=== PATIENT | male | born 1970 | race Caucasian/White ===

== ENCOUNTER → 2018-04-21 14:05 | Emergency (ER) | payer OTHER ==
[~2018-04-21 14:05] MED LIST: Ciprofloxacin TAB* 500 MG PO ONE; Ketorolac INJ* 60 MG/2 ML VIAL IM ONE
--- NOTE | 2018-04-21 14:25 | ED ---
GI/ HPI - HPI Summary HPI Summary: Patient is a 47 y/o M presenting to ED with complaints of left testicular pain that suddenly onset this morning when he woke up, stating, "It (left testicle) started killing me." He is concerned about torsion but has no Hx of torsion. Patient denies urinary Sx, penile discharge, and fever. On triage, pain is rated 6/10. Nothing is noted to aggravate/alleviate Sx. Home medications and allergies are reviewed. - History of Current Complaint Chief Complaint: EDUrogenitalProblems Time Seen by Provider: 04/21/18 14:11 Stated Complaint: TESTICULAR PAIN Hx Obtained From: Patient Onset/Duration: Started Hours Ago, Still Present Timing: Constant, Lasting Hours Severity: Moderate - 6/10 Current Severity: Moderate - 6/10 Pain Intensity: 6 Additional Locations for Males: Testicles - left Associated Signs and Symptoms: Positive: Other: - POSITIVE - LEFT TESTICULAR PAIN. Negative: Fever, Hematuria, Dysuria Additional Signs & Symptoms: Negative: Penile Discharge Aggravating Factor(s): Nothing Alleviating Factor(s): Nothing - Additional Pertinent History Primary Care Physician: [id number] - Allergy/Home Medications Allergies/Adverse Reactions: Allergies Allergy/AdvReac Type Severity Reaction Status Date / Time Penicillins Allergy Severe Swelling Verified 04/21/18 14:10 PMH/Surg Hx/FS Hx/Imm Hx Endocrine/Hematology History: Reports: Hx Diabetes Cardiovascular History: Reports: Hx Hypercholesterolemia, Hx Hypertension Denies: Hx Pacemaker/ICD GI History: Denies: Hx Cirrhosis Musculoskeletal History: Reports: Hx Arthritis, Hx Back Problems Sensory History: Reports: Hx Hearing Aid - left ear Psychiatric History: Reports: Hx Panic Disorder - HX OF PTSD - Surgical History Surgery Procedure, Year, and Place: VASECTOMY 2009,APPENDIX 1999, LEFT KNEE ARTHROSCOPIC 2003, PRK LASER EYE SURGERY 2000 , BILATERAL PLANTAR FASCITIS 2009 Infectious Disease History: No Infectious Disease History: Denies: Traveled Outside the [place] in Last 30 Days - Family History Known Family History: Positive: Hypertension, Diabetes Negative: Cardiac Disease - Social History Alcohol Use: None Alcohol Amount: 1 beer abour q 2 weeks Substance Use Type: Reports: None Smoking Status (MU): Former Smoker Type: Cigarettes Length of Time of Smoking/Using Tobacco: 20 YEARS Have You Smoked in the Last Year: Yes Review of Systems Negative: Fever Positive: pain - LEFT TESTICULAR . Negative: dysuria, discharge - penile , hematuria All Other Systems Reviewed And Are Negative: Yes Physical Exam - Summary Physical Exam Summary: VITAL SIGNS: Reviewed. GENERAL: Patient is a well-developed and nourished male who is lying comfortable in the stretcher. Patient is not in any acute respiratory distress. HEAD AND FACE: Normocephalic and atraumatic. EYES: PERRLA, EOMI x 2, No injected conjunctiva. EARS: Hearing grossly intact. Ear canals and tympanic membranes are WNL. MOUTH: Oropharynx within normal limits. NECK: Supple, trachea is midline, no adenopathy, no JVD. CHEST: Symmetric, no tenderness at palpation LUNGS: Clear to auscultation bilaterally. No wheezing or crackles. CVS: RRR, S1 and S2 present, no murmurs or gallops appreciated. ABDOMEN: Soft, non-tender. No signs of distention. Positive bowel sounds. No rebound no guarding, and no masses palpated. No abdominal bruit or pulsations. EXTREMITIES: FROM in all major joints, no edema, no cyanosis or clubbing. NEURO: Alert and oriented x 3. No acute neurological deficits. Speech is normal. SKIN: Dry and warm : Circumcised penis, both testicles are descended. No masses are appreciated. Positive cremasteric reflex. Tenderness of left testicle. Triage Information Reviewed: Yes Vital Signs On Initial Exam: Initial Vitals Temp Pulse Resp BP Pulse Ox 98.1 F 90 18 152/96 98 04/21/18 14:08 04/21/18 14:08 04/21/18 14:08 04/21/18 14:08 04/21/18 14:08 Vital Signs Reviewed: Yes Diagnostics - Vital Signs Vital Signs Temp Pulse Resp BP Pulse Ox 04/21/18 14:08 98.1 F 90 18 152/96 98 - Laboratory Result Diagrams: 04/21/18 14:39 04/21/18 14:39 Lab Statement: Any lab studies that have been ordered have been reviewed, and results considered in the medical decision making process. - Ultrasound No standard instances Ultrasound Interpretation Completed By: Radiologist Summary of Ultrasound Findings: TESTICULAR US IMPRESSION: 1. NO EVIDENCE FOR TESTICULAR TORSION. 2. FINDINGS MOST CONSISTENT WITH LEFT EPIDIDYMITIS. 3. LEFT VARICOCELE. THIS REPORT WAS REVIEWED BY ED PHYSICIAN. Re-Evaluation - Re-Evaluation First Eval Re-Evaluation Time: 15:50 Comment: Patient was instructed to return to the emergency department he develops more pain or any other symptom. The patient understands and agrees. Patient also states that he is only sexually active with his . GIGU Course/Dx - Course Assessment/Plan: Patient is a 47 y/o M presenting to ED with complaints of left testicular pain that suddenly onset this morning when he woke up, stating, "It ( left testicle) started killing me." He is concerned about torsion but has no Hx of torsion. Patient denies urinary Sx, penile discharge, and fever. Test results without any significant abnormality except for WBCs of 13, slight anemia. Urinalysis is negative for UTI. Testicular ultrasound impression: No evidence for testicular torsion. Findings most consistent with left epididymitis. Left varicocele. In the ED course patient was started with ciprofloxacin and toradol for the pain. At this point the patient will be discharged home with follow-up with primary care physician. The patient will be given a prescription for ciprofloxacin and ibuprofen. Patient was instructed to return to the emergency department he develops more pain or any other symptom. The patient understands and agrees. - Diagnoses Differential Diagnoses - Male: Epididymitis, Testicular Torsion, Urinary Tract Infection Provider Diagnoses: Epididymitis - Physician Notifications Discussed Care Of Patient With: Tim Brooks Time Discussed With Above Provider: 15:13 Instructed by Provider To: Other - Dr. Brooks communicated the results of US to Dr. Piper at 1513. Discharge - Sign-Out/Discharge Documenting (check all that apply): Patient Departure - DISCHARGE Patient Received Moderate/Deep Sedation with Procedure: No - NO PROCEDURES DONE - Discharge Plan Condition: Stable Disposition: HOME Prescriptions: Ciprofloxacin TAB* [Cipro 500 MG TAB*] 500 mg PO BID #20 tab Ibuprofen TAB* [Motrin TAB* 600 MG] 600 mg PO Q8H PRN #30 tab PRN Reason: Pain Patient Education Materials: Epididymitis (ED) Referrals: Bladimir Avila MD [Primary Care Provider] - 3 Days Sharan Ponce MD [Medical Doctor] - 3 Days Additional Instructions: RETURN TO EMERGENCY DEPARTMENT WITH ANY NEW OR WORSENING SYMPTOMS. FOLLOW UP WITH PRIMARY CARE PHYSICIAN AND UROLOGIST WITHIN THREE DAYS. - Billing Disposition and Condition Condition: STABLE Disposition: Home - Attestation Statements Document Initiated by Scribe: Yes Documenting Scribe: LAYTON ORTEGA Provider For Whom Scribe is Documenting (Include Credential): FRANCO PIPER MD Scribe Attestation: I, LAYTON ORTEGA , scribed for FRANCO PIPER MD on 04/22/18 at 1314. Scribe Documentation Reviewed: Yes Provider Attestation: The documentation as recorded by the yaraeLAYTON accurately reflects the service I personally performed and the decisions made by me, FRANCO PIPER MD Status of Scribe Document: Viewed
[2018-04-21 14:53] LABS: ABS Basophils 0 10^3/ul (0-0.2); ABS Eosinophils 0.3 10^3/ul (0-0.6); ABS Lymphocytes 3.6 10^3/ul (1.0-4.8); ABS Neutrophils 8.1 10^3/ul (1.5-7.7); ABS Nucleated RBC 0 10^3/ul; Hematocrit 40 % (42-52); Hemoglobin 13.7 g/dl (14.0-18.0); Lymphocyte % 27.4 %; Mean Corpuscular HGB Conc 34 g/dl (31-36); Mean Corpuscular Hemoglobin 28 pg (27-31); Mean Corpuscular Volume 83 fL (80-94); Mean Platelet Volume 8.9 fL (7.4-10.4); Nucleated Red Blood Cells % 0; Platelet Count 280 10^3/ul (150-450); Red Blood Count 4.85 10^6/ul (4.00-5.40); Red Cell Distribution Width 14 % (10.5-15)
[2018-04-21 14:56] LABS: Urine Appearance Clear; Urine Bilirubin Negative (Negative); Urine Blood Negative (Negative); Urine Color Yellow; Urine Glucose Negative (Negative); Urine Ketones Negative (Negative); Urine Nitrite Negative (Negative); Urine Protein Negative (Negative); Urine Urobilinogen Negative (Negative)
[2018-04-21 15:30] LABS: Albumin 4.7 g/dL (3.2-5.2); Albumin/Globulin Ratio 1.7 (1-3); BUN/Creatinine Ratio 12.2 (8-20); C Reactive Protein 7.33 mg/L (<8.01); Calcium 9.3 mg/dL (8.6-10.3); EGFR African American 98.8 (>60); EGFR Non-African American 81.6 (>60); Globulin 2.7 g/dL (2-4); Potassium 4.1 mmol/L (3.5-5.0); Total Bilirubin 0.3 mg/dL (0.2-1.0); Total Protein 7.4 g/dL (6.4-8.9)
[2018-04-21 16:18] VITALS: BP 133/95
[2018-04-23 13:42] LABS: Neisseria gonorrhoeae (GC) RNA Negative (Negative)
== END | disposition home or self-care (01) ==
LOC: ED 14:05
DX: N45.1 Epididymitis (principal); I86.1 Scrotal varices; Z88.0 Allergy status to penicillin; Z87.891 Personal history of nicotine dependence
CPT/HCPCS: 36415; 76870; 80053; 81003; 83605; 85025; 86140; 87491; 87591; 96372; 99283; A9270-GY; J1885

== ENCOUNTER 2021-03-03 10:40 | Inpatient (IN) ==
[~2021-03-03 10:40] MED LIST changes: +Buffered Lidocaine 1% SYRIN 1 ml INTRADERM ONE; -Ciprofloxacin TAB* 500 MG PO ONE; -Ketorolac INJ* 60 MG/2 ML VIAL IM ONE; +Lactated Ringers 1000 ml BAG 1,000 ML IV SCH
[2021-03-03] MEDS ORDERED: Buffered Lidocaine 1% SYRIN 1 ml INTRADERM ONE (11:04)
[2021-03-03] MEDS ORDERED: Scopolamine 1 mg/72hr PATCH ONE (11:07)
[2021-03-03] MEDS ORDERED: Heparin 5000 UNITS/ML 1 mL VIAL ONE (11:07)
[2021-03-03] MEDS ORDERED: Clindamycin 900 MG/D5W BAG 900 MG/50 ML BAG IVPB ONE (11:07)
[2021-03-03] MEDS ORDERED: Ondansetron 4 mg VIAL 2 MG/ML 2 ml VIAL IV PRN ×2 (11:33→14:41)
[2021-03-03] MEDS ORDERED: Naloxone 0.4 mg VIAL 0.4 mg/ml 1 ml VIAL IV PRN (11:33)
[2021-03-03] MEDS ORDERED: HYDROmorphone 1 MG/1 ML SYRINGE IV PRN (11:33)
[2021-03-03] MEDS ORDERED: fentaNYL 100 mcg/2 ml 50 MCG/ML VIAL IV PRN (11:33)
[2021-03-03] MEDS ORDERED: Acetaminophen IV 1 GM/100ML 100 ML IV ONE ×2 (11:33→14:06)
[2021-03-03] MEDS ORDERED: DiMENhydriNATE IV 50 mg/ml 1 ml VIAL IV PUSH PRN (11:33)
[2021-03-03] MEDS ORDERED: Rocuronium 50 mg VIAL 10 mg/ml 5 ml VIAL (50 mg) ONE ×3 (11:34→13:33)
[2021-03-03] MEDS ORDERED: Ondansetron 4 mg VIAL 2 MG/ML 2 ml VIAL ONE ×2 (11:42→14:55)
[2021-03-03] MEDS ORDERED: Lidocaine 2% PF 5 ML VIAL ONE (11:42)
[2021-03-03] MEDS ORDERED: Propofol 10 MG/ML 20 ML BTL ONE (11:42)
[2021-03-03] MEDS ORDERED: Midazolam 2 mg/2 ml VIAL 1 mg/ml 2 ml VIAL (2 mg) ONE (11:43)
[2021-03-03] MEDS ORDERED: fentaNYL 250 mcg/5 ml 50 MCG/ML 5 ml VIAL (250 MCG) ONE (11:43)
[2021-03-03] MEDS ORDERED: Bupivacaine 0.25% SDV 30 ML ONE (11:45)
[2021-03-03] MEDS ORDERED: Phenylephrine 40 mcg/mL 10mL (400mcg) SYRINGE ONE (12:42)
[2021-03-03] MEDS ORDERED: Phenylephrine IV 10 MG/ML 1 ml VIAL ONE (13:07)
[2021-03-03] MEDS ORDERED: HYDROcodone/ACET. 7.5/325 LIQ 15 ML UDC PO PRN (14:41)
[2021-03-03] MEDS ORDERED: diPHENhydraMINE IV 50 MG/ML 1 ml VIAL (BENADRYL) SLOW PUSH PRN (14:41)
[2021-03-03] MEDS ORDERED: HYDROmorphone 1 MG/1 ML SYRINGE IV SLOW PU PRN (14:41)
[2021-03-03] MEDS ORDERED: HYDROmorphone 0.5 MG/0.5 ML SYRINGE IV SLOW PU PRN (14:41)
[2021-03-03] MEDS ORDERED: Dextrose 50% Syringe 50 ml 25 GM/50 ML SYRINGE IV PUSH PRN (14:41)
[2021-03-03] MEDS: Lactated Ringers 1000 ml BAG 1,000 ML IV SCH ×2 (16:23→23:06)
[2021-03-03] MEDS: Famotidine IV 10 MG/ML 2 ml VIAL (20 mg) IV SLOW PU SCH (22:43)
[2021-03-03] MEDS: Heparin 5000 UNITS/ML 1 mL VIAL SUBCUT SCH (22:43)
[2021-03-04] MEDS: Lactated Ringers 1000 ml BAG 1,000 ML IV SCH (06:10)
[2021-03-04] MEDS: Heparin 5000 UNITS/ML 1 mL VIAL SUBCUT SCH ×2 (06:27→13:57)
[2021-03-04] MEDS: Famotidine IV 10 MG/ML 2 ml VIAL (20 mg) IV SLOW PU SCH (07:32)
[2021-03-04] MEDS ORDERED: D5W 1/2 NS KCl 20 meq 1000 ml 1,000 ML IV SCH (15:00)
[2021-03-04 15:48] VITALS: BP 127/71
== END 2021-03-04 17:25 | disposition home or self-care (01) | DRG 621 ==
LOC: AA 10:40 → SSU 16:01
PROVIDERS: ADMIT Surgery; ATTEND Surgery